=== PATIENT | male | born 1975 | race Caucasian/White ===

== ENCOUNTER 2022-07-21 20:37 | Emergency (ER) | payer BC, SELFPAY ==
[2022-07-21 22:27] LABS: Mean Corpuscular HGB CONC 32.7 g/dL (32.0-36.0); Mean Corpuscular Hemoglobin 34.3 pg (27.0-31.0); Mean Platelet Volume 8.6 fL (7.4-10.4); Platelet Count 232 thou/uL (130-400); RBC Distribution Width 17.6 % (11.5-14.5); Red Blood Cell (RBC) Count 4.67 mill/uL (4.70-6.10); White Blood Cell (WBC) Count 13.2 thou/uL (4.8-10.8)
[2022-07-21 22:39] LABS: Acetaminophen Less than 10.0 mcg/mL (10.0-30.0); Alcohol 155 mg/dL (Less than 10); CK (CPK) 67 U/L (30-200); Magnesium 1.2 mg/dL (1.6-2.6); Salicylate Less than 8.0 mg/dL (15.0-30.0)
[2022-07-21 22:45] LABS: #Basophils 0.1 thou/uL (0.0-0.2); #Lymphocytes 1.6 thou/uL (1.20-3.40); #Monocytes 0.7 thou/uL (0.11-0.59); #Neutrophils 10.7 thou/uL (1.40-6.50); %Basophils 0.7 % (0.0-1.0); %Eosinophils 0.2 % (0.0-10.0); %Lymphocytes 12.2 % (21.0-51.0); %Monocytes 5.6 % (0.0-10.0); %Neutrophils 81.3 % (42.0-75.0); MDiff Complete? YES; Macrocytosis SLIGHT = 6-15 cells (100X) (0-5/hpf)
[2022-07-21 22:48] LABS: ALT (SGPT) 159 U/L (8-55); AST (SGOT) 344 U/L (5-34); Albumin 2.9 g/dL (3.5-5.0); Alkaline Phosphatase 263 U/L (40-110); Anion Gap 23 mmol/L (10-20); BUN (Urea Nitrogen) Less than 4 mg/dL (8.9-20.6); Calc. Creatinine Clearance 0 mL/min (70-130); Carbon Dioxide 22 mmol/L (22-29); Chloride 95 mmol/L (98-107); Estimated GFR 112; Globulin 3.9 g/dL (2.4-3.5); Glucose 122 mg/dL (70-105); Protein, Total 6.8 g/dL (6.0-8.3); Sodium 136 mmol/L (136-145)
[2022-07-21 22:52] LABS: Bacteria/HPF None Seen HPF (None Seen); Bilirubin 1+ (Negative); Blood, Urine 1+ (Negative); Clarity Clear (Clear); Glucose, Urine (Dipstick) Normal (Negative); Ketone, Urine Negative (Negative); Leukocyte Negative Leu/uL (Negative); Nitrite Negative (Negative); Protein, Urine (Dipstick) 200 mg/dL (Neg-Trace); Specific Gravity, Urine 1.018 (1.002-1.036); Squamous Epithelial 0-3 HPF (0-3); WBC/HPF 0-3 HPF (0-3); pH, Urine 6.5 (5.0-9.0)
[2022-07-21 22:56] LABS: Amphetamine Not Detected (NotDetected); Barbiturates Screen Not Detected (NotDetected); Benzodiazepine Screen Not Detected (NotDetected); Cocaine Metabolite Screen Not Detected (NotDetected); Methadone Not Detected (NotDetected); Methamphetamine Not Detected (NotDetected); Opiate Screen Not Detected (NotDetected); Oxycodone Screen Not Detected (NotDetected); Phencyclidine (PCP) Not Detected (NotDetected); THC/Cannabinoid Screen Not Detected (NotDetected); Tricyclic Screen Not Detected (NotDetected)
[2022-07-21 22:57] LABS: Bilirubin, Total 1.4 mg/dL (0.2-1.2)
[2022-07-21] MEDS ORDERED: Nicotine 14 MG PATCH ONE (23:20)
[2022-07-21] MEDS ORDERED: Magnesium 2 GM/50 ML BAG (IN WATER) ONE (23:20)
[2022-07-22] MEDS ORDERED: Lorazepam 2 MG/ML VIAL ONE (00:08)
[2022-07-22] MEDS ORDERED: Lorazepam 1 MG TAB ONE (02:20)
[2022-07-22 02:48] LABS: Lactic Acid 8.6 mmol/L (0.5-2.2)
[2022-07-22 03:28] LABS: ALT (SGPT) 125 U/L (8-55); AST (SGOT) 234 U/L (5-34); Albumin 2.4 g/dL (3.5-5.0); Alcohol 12 mg/dL (Less than 10); Alkaline Phosphatase 208 U/L (40-110); Anion Gap 22 mmol/L (10-20); BUN (Urea Nitrogen) 4 mg/dL (8.9-20.6); Bilirubin, Direct 0.5 mg/dL (0.1-0.3); Bilirubin, Total 1.2 mg/dL (0.2-1.2); Calc. Creatinine Clearance 0 mL/min (70-130); Carbon Dioxide 18 mmol/L (22-29); Chloride 99 mmol/L (98-107); Estimated GFR 116; Glucose 101 mg/dL (70-105); Potassium 3.3 mmol/L (3.5-5.1); Protein, Total 5.9 g/dL (6.0-8.3); Sodium 136 mmol/L (136-145)
[2022-07-22 04:00] LABS: Troponin I 0.012 ng/mL (< 0.028)
== END 2022-07-22 08:37 | disposition home or self-care (01) ==
LOC: ERS 20:37
DX: F10.129 Alcohol abuse with intoxication, unspecified (principal); F17.210 Nicotine dependence, cigarettes, uncomplicated
CPT/HCPCS: 36415; 71045; 80048; 80053; 80076; 80306; 80307; 81003; 81015; 82550; 83605; 83735; 84443; 84484; 85025; 93005; 96365; 96375; 96376; J2060; J3475